=== PATIENT | male | born 1945 ===

== ENCOUNTER → 2023-04-14 | Outpatient (CLI) | payer MEDICARE ==
[~2023-04-14] VITALS: Ht 167.6 cm; Wt 63.5 kg
[2023-04-14 13:32] VITALS: BP 152/65
== END | disposition home or self-care (01) ==
LOC: SRCNTR 12:56
PROVIDERS: ATTEND Internal Medicine Pulmonary Disease
DX: R06.02 Shortness of breath (principal); R06.2 Wheezing; I12.9 Hypertensive chronic kidney disease with stage 1 through stage 4 chronic kidney disease, or unspecified chronic kidney disease; N18.9 Chronic kidney disease, unspecified; M06.9 Rheumatoid arthritis, unspecified; R06.00 Dyspnea, unspecified; Z95.1 Presence of aortocoronary bypass graft; Z87.891 Personal history of nicotine dependence; Z82.49 Family history of ischemic heart disease and other diseases of the circulatory system
CPT/HCPCS: G0463

== ENCOUNTER → 2023-06-29 | Outpatient (CLI) | payer MEDICARE, OTHER ==
[~2023-06-29] VITALS: Ht 167.6 cm; Wt 63.2 kg
[~2023-06-29] MED LIST: ASPI-1450 PO; ATOR40TA28 PO; CARV6 PO; EMPA10TA3 PO; FLUT1BLS15 PUFF; HYDR200T38 PO; LORA10TA7 PO; METF-1211 PO; NITR0.4T52 SL; TELM1TAB42 PO
[2023-06-29 11:06] VITALS: BP 135/56; PULSE 67; RESP 17; TEMP 98.1; O2SAT 99
== END | disposition home or self-care (01) ==
LOC: SRCNTR 10:23
PROVIDERS: ATTEND Internal Medicine Pulmonary Disease
DX: I12.9 Hypertensive chronic kidney disease with stage 1 through stage 4 chronic kidney disease, or unspecified chronic kidney disease (principal); N18.9 Chronic kidney disease, unspecified; M06.9 Rheumatoid arthritis, unspecified; R06.00 Dyspnea, unspecified; R06.2 Wheezing; J61 Pneumoconiosis due to asbestos and other mineral fibers; Z87.891 Personal history of nicotine dependence
CPT/HCPCS: G0463

== ENCOUNTER → 2023-07-26 | Outpatient (CLI) | payer MEDICARE, OTHER ==
[~2023-07-26] VITALS: Ht 167.6 cm; Wt 64.0 kg
[~2023-07-26] MED LIST changes: +BENR30AU SQ; +EMPA1TAB11 PO; +FLUT1BLS15 IH; +LEVO25TA9 PO
[2023-07-26 13:00] VITALS: BP 135/55; PULSE 74; RESP 16; TEMP 98.2; O2SAT 99
== END | disposition home or self-care (01) ==
LOC: SRCNTR 12:33
PROVIDERS: ATTEND Internal Medicine Pulmonary Disease
DX: I12.9 Hypertensive chronic kidney disease with stage 1 through stage 4 chronic kidney disease, or unspecified chronic kidney disease (principal); N18.9 Chronic kidney disease, unspecified; M06.9 Rheumatoid arthritis, unspecified; J61 Pneumoconiosis due to asbestos and other mineral fibers; R06.00 Dyspnea, unspecified; R06.2 Wheezing; Z87.891 Personal history of nicotine dependence
CPT/HCPCS: G0463

== ENCOUNTER → 2023-10-12 | Outpatient (CLI) | payer MEDICARE, OTHER ==
[~2023-10-12] VITALS: Ht 167.6 cm; Wt 64.0 kg
[~2023-10-12] MED LIST changes: -EMPA10TA3 PO; -FLUT1BLS15 PUFF; -METF-1211 PO
[2023-10-12 13:22] VITALS: BP 131/62; PULSE 77; RESP 20; TEMP 98.5; O2SAT 98
== END | disposition home or self-care (01) ==
LOC: SRCNTR 12:56
PROVIDERS: ATTEND Internal Medicine Pulmonary Disease
DX: I12.9 Hypertensive chronic kidney disease with stage 1 through stage 4 chronic kidney disease, or unspecified chronic kidney disease (principal); N18.9 Chronic kidney disease, unspecified; M06.9 Rheumatoid arthritis, unspecified; J45.41 Moderate persistent asthma with (acute) exacerbation
CPT/HCPCS: G0463; Z7500

== ENCOUNTER → 2024-05-17 | Outpatient (CLI) | payer MEDICARE, OTHER ==
[~2024-05-17] VITALS: Ht 167.6 cm; Wt 64.0 kg
[2024-05-17 11:40] VITALS: BP 143/72; PULSE 70; RESP 18; TEMP 98.4; O2SAT 98
== END | disposition home or self-care (01) ==
LOC: SRCNTR 11:34
PROVIDERS: ATTEND Internal Medicine Pulmonary Disease
DX: J45.41 Moderate persistent asthma with (acute) exacerbation (principal); I12.9 Hypertensive chronic kidney disease with stage 1 through stage 4 chronic kidney disease, or unspecified chronic kidney disease; N18.9 Chronic kidney disease, unspecified; M06.9 Rheumatoid arthritis, unspecified; J61 Pneumoconiosis due to asbestos and other mineral fibers; Z79.899 Other long term (current) drug therapy; Z79.82 Long term (current) use of aspirin
CPT/HCPCS: G0463